=== PATIENT | male | born 1945 | race Caucasian/White ===

== ENCOUNTER 2023-03-15 08:33 | Day surgery (SDC) | payer MEDICARE, BC ==
[2023-03-15] MEDS ORDERED: Lactated Ringers 1,000 ML IV ONE (09:00)
[2023-03-15] MEDS ORDERED: Glycopyrrolate 0.2 MG/ML 2 ML SDV IVPUSH ONE (09:00)
[2023-03-15] MEDS ORDERED: Cyanocobalamin (Vitamin B12) 1,000 MCG/ML SDV IM ONE (09:00)
[2023-03-15] MEDS ORDERED: fentaNYL 50 MCG/ML SDV ONE (09:41)
[2023-03-15] MEDS ORDERED: Propofol 200 MG/20 ML SDV ONE (09:41)
[2023-03-15] MEDS ORDERED: MVI, Adult with Vitamin K 10 ML, Thiamine 200 MG, Zinc/Copper/Manganese/Selenium 1 ML i... IV ONE ×4 (10:00)
[2023-03-15] MEDS ORDERED: Pantoprazole 40 MG Vial IVPUSH ONE (11:30)
== END 2023-03-15 12:45 | disposition home or self-care (01) ==
LOC: JP.SDS 08:33
PROVIDERS: ATTEND Surgery
DX: R13.10 Dysphagia, unspecified (principal); R68.81 Early satiety; I10 Essential (primary) hypertension; E11.9 Type 2 diabetes mellitus without complications; Z98.84 Bariatric surgery status; Z79.899 Other long term (current) drug therapy
CPT/HCPCS: 43239; 87081; C9113; J2704; J3010; J3411; J3420; J7120; J3490

== ENCOUNTER 2025-04-05 08:06 | Day surgery (SDC) | payer MEDICARE, BC ==
[2025-04-05] MEDS ORDERED: fentaNYL 50 MCG/ML SDV ONE (08:34)
[2025-04-05] MEDS ORDERED: Propofol 200 MG/20 ML SDV ONE ×3 (08:34→10:11)
[2025-04-05] MEDS: Lactated Ringers 1,000 ML IV SCH (08:53)
== END 2025-04-05 11:42 | disposition home or self-care (01) ==
LOC: JP.SDS 08:06
PROVIDERS: ATTEND Surgery
DX: K22.10 Ulcer of esophagus without bleeding (principal); K20.90 Esophagitis, unspecified without bleeding; K57.30 Diverticulosis of large intestine without perforation or abscess without bleeding; I10 Essential (primary) hypertension; E11.9 Type 2 diabetes mellitus without complications; R63.4 Abnormal weight loss
CPT/HCPCS: 00813; 43239; 45378; 88305; 88312; 88342; C1726; J2704; J3010; J7120